=== PATIENT | male | born 1990 | race Hispanic/Latino ===

== ENCOUNTER → 2022-09-18 | Day surgery (SDC) | payer OTHER ==
[~2022-09-18] MED LIST: DICYCLOMINE HCL20 MG PO; FENTANYL CITRATE/PF 100MCG/2 ML INJ ONE; HYOSCYAMINE SULFATE 0.5 MG/ML INJ ONE; LACTATED RINGER'S 1,000 ML ONE; LIDOCAINE HCL 2% LOCAL INJ 5 ML SDV VIAL INJ ONE; MIDAZOLAM HCL 2 MG/2 ML VIAL ONE; TESTOSTERO100 MG/1 M INJ
[2022-09-18 16:30] VITALS: BP 102/92
== END | disposition home or self-care (01) ==
LOC: OR 13:24 → EDSEX 15:00
PROVIDERS: ATTEND Internal Medicine Gastroenterology
DX: K21.9 Gastro-esophageal reflux disease without esophagitis (principal); D3A.8 Other benign neuroendocrine tumors; D12.0 Benign neoplasm of cecum; K29.70 Gastritis, unspecified, without bleeding; K52.9 Noninfective gastroenteritis and colitis, unspecified; K20.90 Esophagitis, unspecified without bleeding; K59.09 Other constipation; K62.89 Other specified diseases of anus and rectum; K63.89 Other specified diseases of intestine; K64.8 Other hemorrhoids; Z71.3 Dietary counseling and surveillance; Z71.89 Other specified counseling; Z79.890 Hormone replacement therapy; Z68.36 Body mass index [BMI] 36.0-36.9, adult
CPT/HCPCS: 43239; 45380; 45385; 81025; 83630; 83993; 87045; 87177; 87324; 87328; 87449; C9113; J1980; J2001; J2250; J3010; J7121; 45378

== ENCOUNTER → 2022-10-02 | Outpatient (CLI) | payer OTHER ==
[~2022-10-02] MED LIST changes: -FENTANYL CITRATE/PF 100MCG/2 ML INJ ONE; -HYOSCYAMINE SULFATE 0.5 MG/ML INJ ONE; +IOPAMIDOL 370 MG/ML 100 ML INFUS..BTL INJ ONE; -LACTATED RINGER'S 1,000 ML ONE; -LIDOCAINE HCL 2% LOCAL INJ 5 ML SDV VIAL INJ ONE; -MIDAZOLAM HCL 2 MG/2 ML VIAL ONE
== END ==
LOC: CT 11:51
PROVIDERS: ATTEND Nurse Practitioner
DX: D3A.8 Other benign neuroendocrine tumors (principal)
CPT/HCPCS: 74177; Q9967

== ENCOUNTER → 2022-10-14 | Outpatient (CLI) | payer OTHER ==
[~2022-10-14] MED LIST changes: +GADOBENATE DIMEGLUMINE 1 ML IV ONE; -IOPAMIDOL 370 MG/ML 100 ML INFUS..BTL INJ ONE
== END ==
LOC: MRI 08:40
PROVIDERS: ATTEND Internal Medicine
DX: D3A.8 Other benign neuroendocrine tumors (principal)
CPT/HCPCS: 74183; A9577

== ENCOUNTER → 2022-10-19 | Outpatient (CLI) | payer OTHER | LOC: MRI 11:07 | PROVIDERS: ATTEND Internal Medicine | DX: D3A.8 Other benign neuroendocrine tumors (principal) | CPT/HCPCS: 72197; A9577 ==